=== PATIENT | female | born 1975 | race Caucasian/White ===

== ENCOUNTER 2017-04-09 11:05 | Day surgery (SDC) | payer MEDICAID ==
[~2017-04-09 11:05] MED LIST: ACETAMINOPHEN 1,000 MG/100 ML BTL IV ONE
[2017-04-09] MEDS ORDERED: BUPIVACAINE 0.25% W/EPI MPF 30ML VIAL IVP ONE (15:43)
[2017-04-09] MEDS ORDERED: LIDOCAINE 2% MDV (20MG/ML) 20ML VIAL IV ONE (16:07)
[2017-04-09] MEDS ORDERED: PROPOFOL 10 MG/ML VIAL IV ONE (16:07)
[2017-04-09] MEDS ORDERED: ONDANSETRON HCL IV 4 MG/2 ML VIAL IVP ONE (16:07)
[2017-04-09] MEDS ORDERED: FENTANYL PF 100MCG/2ML VIAL IV ONE (16:07)
[2017-04-09] MEDS ORDERED: MIDAZOLAM HCL 2MG/2ML VIAL IV ONE (16:07)
[2017-04-09] MEDS ORDERED: KETOROLAC 30 MG/ML VIAL IVP ONE (16:07)
[2017-04-09] MEDS ORDERED: SEVOFLURANE 250 ML INH ONE (16:07)
--- NOTE | 2017-04-10 12:31 | Operative Note ---
DATE OF SURGERY: 04/09/2017 Surgeon: Connor Herrera DO PREOPERATIVE DIAGNOSES: 1. Chondromalacia of the left knee. 2. Possible torn medial meniscus, left knee. POSTOPERATIVE DIAGNOSES: 1. Osteoarthritis of the left knee. 2. Chondromalacia of the patella, left knee. 3. Loose joint body of left knee. OPERATION: 1. Arthroscopic microfracture of the lateral femoral condyle, left knee. 2. Arthroscopic chondroplasty of the patella, left knee. 3. Arthroscopic removal of loose joint body (x3), left knee. DESCRIPTION OF PROCEDURE: This 41-year-old female was taken to the operating room, placed in the supine position on the operating room table. A general anesthetic was administered and the left leg was elevated. It was exsanguinated and the tourniquet inflated to 300 mmHg. Arthroscopic knee pace applied. Left knee prepped with Hibiclens and draped in the usual sterile fashion. An inferolateral portal was established for the 4 mm arthroscope, and initial evaluation of the joint demonstrated grade 2 chondromalacia of the patella involving the median ridge and lateral facet. The medial facet appeared to be essentially unremarkable. Loose fragment of articular cartilage was present, and chondroplasty was performed to restore stability to the articular cartilage there. The trochlea appeared essentially normal. The medial and lateral gutters demonstrated loose fragments of articular cartilage which were sucked from the joint. The medial compartment was entered and a relatively large chunk of cartilage was present there. It was grasped and removed but probing of the medial meniscus did not reveal any alyssa tears. However, there did appear to be some degenerative change of the meniscus at the junction of the body and posterior horn. It was not further disturbed. The intracondylar notch was examined and found to be normal. The lateral compartment was entered and more chunks of articular cartilage were present. These were grasped and removed from the joint. The patient had a very large lesion of the lateral femoral condyle. This lesion was approximately 2.5 x 1.5 cm pretty much down the middle of the center of the weightbearing surface of the lateral femoral condyle. The cartilage chunks were simply missing, and it was essentially raw bone. Loose fragments of articular cartilage were present at the periphery and these were smoothed with the rotating shaver. We used a 0.62 K wire to puncture holes through the subcondylar bone to stimulate cartilage formation there. Approximately 6-7 holes were made and they penetrated a distance of a few millimeters. Once this had been accomplished, the patient's lateral meniscus was normal. The wound was copiously irrigated and suctioned. The instruments were removed. The portals infiltrated with 0.25% Marcaine with epinephrine. A single stitch placed on each portal. Sterile dressings applied and the patient taken to the recovery room in satisfactory condition. 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 CC: Dr. Vanessa MALDONADO
== END 2017-04-09 14:32 | disposition home or self-care (01) ==
LOC: SUR 11:05
PROVIDERS: ATTEND Orthopaedic Surgery
DX: M17.12 Unilateral primary osteoarthritis, left knee (principal); M94.262 Chondromalacia, left knee; M23.42 Loose body in knee, left knee
CPT/HCPCS: 81025; 29879; 01400; J1885; J2405; J3010